=== PATIENT | male | born 1985 | race Caucasian/White ===

== ENCOUNTER → 2018-01-24 | Outpatient (CLI) | payer OTHER ==
--- NOTE | 2018-01-24 12:24 | RADIOLOGY IMAGING REPORT ---
FACILITY: [facility] PATIENT NAME: Sukhi Gonzales : 1985 MR: [id number] V: [id number] EXAM DATE: ORDERING PHYSICIAN: JONATHAN ADAME TECHNOLOGIST: Location: [facility] [place] Patient: Sukhi Gonzales : 1985 Visit/Account:[id number] Date of Sevice: 01/24/2018 EXAMINATION: Right LOWER EXTREMITY VENOUS DOPPLER ULTRASOUND DATE: 01/24/2018 12:15 PM CLINICAL INFORMATION: Right calf pain. REASON FOR STUDY: Evaluate for DVT TECHNIQUE: Grayscale, color Doppler, and spectral Doppler ultrasound was performed of the lower extre mity veins to evaluate for deep venous thrombosis. COMPARISON: None FINDINGS: The right common femoral, femoral, and popliteal veins are compressible with normal flow on color Dop pler imaging. There is also normal Doppler flow of the profunda femoris and greater saphenous veins a t the confluence with the common femoral vein. The right posterior tibial and peroneal veins demonstrate normal flow. Within the musculature of the right posterior calf is an anechoic collection measuring approximately 3.6 cm in length and 1.2 cm in depth. IMPRESSION: 1. No evidence of deep venous thrombosis in the right lower extremity veins. 2. Anechoic fluid collection within the musculature of the right calf is nonspecific as the site of o rigin is indeterminate on the provided images. This could be a resolving hematoma versus a cyst/gangl ion possibly arising from a joint space. If there is need for anatomic definition, MRI would better d efine the collection. Report Dictated By: Sandhya Lundy MD at 01/24/2018 12:15 PM Report E-Signed By: Sandhya Lundy MD at 01/24/2018 12:20 PM WSN:[id number]
== END ==
LOC: US 10:58
PROVIDERS: ATTEND Nurse Practitioner Family
DX: R22.41 Localized swelling, mass and lump, right lower limb (principal)